=== PATIENT | female | born 2000 | race Caucasian/White ===

== ENCOUNTER 2020-05-15 11:48 | Emergency (ER) | payer MEDICAID, SELFPAY ==
[2020-05-15 11:49] VITALS: BP 143/86; PULSE 109; RESP 16; TEMP 36.2; O2SAT 97; BMI 35.7
--- NOTE | 2020-05-15 12:21 | ED.VISSUMM ---
- ER Visit Summary Date of Service: 05/15/20 Chief Complaint: Left flank pain History of Present Illness: The patient is a 19 F who presents with left flank pain that began approximately 6 days ago. Patient states it is gradually gotten worse. Patient states that today the pain feels like it is stabbing in her left flank area. Patient states it is worse whenever she lays on her left side. Patient states her pain improves after she vomits. Patient denies any dysuria or hematuria. However, patient states she feels like she has to push her urine to come out. Patient admits to a fever of 101 at home. Patient also admits to mild headache. Physical Examination: Vital signs are stable. Patient is afebrile. Patient is in no acute distress. Oral mucosa is pink and moist. Neck is supple. Trachea is midline. There is no JVD. Heart was regular rate and rhythm. Lungs are clear and equal bilaterally. Abdomen is soft. Bowel sounds are normal. There is some mild left lower quadrant tenderness. There is some left CVA tenderness. There is no rebound or guarding noted. Cranial nerves II through XII are intact. There are no focal motor or sensory deficits noted. Extremities are intact. There is no calf tenderness or edema. Test Results: CBC shows a mild leukocytosis of 13.7. Comprehensive metabolic profile was within normal limits. Urinalysis shows leukocyte esterase of 25 with positive nitrites and 3+ bacteria. There were 5-[address] scan of the abdomen pelvis was obtained. There is a 3.4 mm distal ureteral calculus on the right. There is some mild hydronephrosis and hydroureter. This was interpreted by the radiologist and reviewed by myself. Emergency Department Course and Treatment: Patient was given a dose of Toradol here. Patient was feeling better on reevaluation. Patient was given a prescription for short course of [place]. Patient was also given a prescription for Keflex. Patient was instructed to follow-up with her primary care physician in 5 to 7 days. Patient was instructed return if worse in any way. Patient understood and was agreeable with the plan. All questions were answered. Disposition: Discharge home Impression: 1. Right ureteral calculus 2. Urinary tract infection This note was generated with 2threadsation software. It may contain incorrect words, spelling, and punctuation that were not noted in review of the chart prior to signing ED Disposition - Plan for ED Patient: Disposition: Home or Assisted Living Diagnosis: Right distal ureteral calculus, Urinary tract infection Instructions: ED Bladder Infection, Female (Adult), ED Kidney Stone w/ Colic Prescriptions: Cephalexin [Keflex] 500 mg PO Q6 #12 cap Prescription Printed Hydrocodone Bitart/Apap 5-325 [[place] 5MG-325MG] 1 tab PO Q6H PRN PRN 3 Days #10 tab PRN Reason: Pain Prescription Printed Referrals: NOT,DEFINED [NON-STAFF] - 5-7 Days
--- NOTE | 2020-05-15 13:44 | CT_ITS ---
STUDY: CT ABDOMEN AND PELVIS WITHOUT CONTRAST REASON FOR EXAM: Female, 19 years old. BILATERAL FLANK PAIN X 5 DAYS-WORSENING RADIATION DOSAGE (If Supplied By Facility): CTDIvol = ( 15.43 ) mGy, DLP = ( 871.47 ) mGycm TECHNIQUE: Transaxial images were obtained from the dome of the diaphragm to the symphysis pubis without oral contrast, and without intravenous contrast. Sagittal and coronal images were reconstructed. Individualized dose optimization techniques were used for this CT. COMPARISON: None. FINDINGS: The visualized lung bases are unremarkable. The visualized portions of the heart are within normal limits. There is decreased attenuation of the liver consistent with steatosis. Normal gallbladder and extrahepatic biliary system. Normal spleen. Normal pancreas. Normal bilateral adrenal glands. 3.4 mm calculus in the distal portion of the right ureter just proximal to the ureterovesical junction. Normal left kidney. There is a small hiatal hernia. Normal small intestine. Normal colon. The appendix is visualized and appears normal. Normal abdominal aorta. Normal inferior vena cava. Normal retroperitoneum. Normal urinary bladder. There is a 4.4 cm x 2.8 cm right ovarian cyst. Normal abdominal wall. Normal osseous structures. CT/Abdomen/Pelvis without Cont IMPRESSION: Diffuse fatty infiltration of the liver. 3.4 mm calculus in the distal portion of the right ureter just proximal to the ureterovesical junction. Electronically Signed: Harsha Smith MD at 15:07 EST , Service support ,
[2020-05-15] MEDS: Ketorolac 30 MG/ML Syringe IV (14:07)
[2020-05-15 14:16] LABS: Color, Urine Yellow (Yellow); Glucose, Dipstick Normal (Normal); Ketone-Dipstick Negative (Negative); Leukocyte Esterase-Dipstick 25 /ul (Negative); Mucous, Urine 0 SEEN /hpf (<or=2+); Nitrite-Dipstick Positive (Negative); Occult Blood-Urine Negative /ul (Negative); Protein-Dipstick Negative (Negative); Red Blood Cells-Urine 0 SEEN /hpf (0-5); Specific Gravity, Urine 1.025 (1.002-1.030); Squamous Epithelial Cells - UA 0 SEEN /hpf (5-10); Urine Bilirubin Dipstick Negative (Negative); Urine Clarity Clear (Clear); Urine Urobilinogen Normal (Normal)
[2020-05-15 14:17] LABS: Absolute Lymphocyte Count 3.46 X10^3/uL (0.83-4.51); Absolute Neutrophil Count 8.9 X10^3/uL (2.0-7.7); Basophil# 0.08 X10^3/uL; Basophil% 0.6 % (0-1); Eosinophil# 0.12 X10^3/uL; Eosinophils% 0.9 % (0-5); Hematocrit 45.1 % (37-47); Hemoglobin 15.8 g/dL (12.0-15.0); Lymphocyte # 3.46 X10^3/ul (4.0); Lymphocyte % 25.2 % (19-41); Mean Corpuscular Hgb 31.2 pg (27.0-32.0); Mean Platelet Vol. 10.5 fl (6.2-12.0); Monocyte# 1.02 X10^3/uL; Monocyte% 7.4 % (0-10); NRBC Flagged by Analyzer 0 % (0-5); Neutrophil # 8.91 X10^3/uL (2.7-7.7); Neutrophil % 64.8 % (47-70); Platelet Count 259 K/mm3 (150-450); RBC Distribution Width CV 12.4 % (11.6-14.6); RBC Distribution Width SD 39.3 fl (35.1-43.9); Red Blood Count 5.07 M/mm3 (4.2-5.4); White Blood Count 13.7 K/mm3 (4.4-11.0)
[2020-05-15 14:23] LABS: Internal QC Validated? YES +Cl - CLEAR BKGD; Pregnancy, Serum, hCG Quali. NEGATIVE Negative
[2020-05-15 14:24] LABS: Bacteria 3+ /hpf (None Seen); White Blood Cells 5-10 SEEN /hpf (0-5)
[2020-05-15 14:32] LABS: AST(SGOT) 33 U/L (15-37); Alanine Aminotransfer ALT/SGPT 70 U/L (13-56); Alkaline Phosphatase 85 U/L (45-117); Anion Gap 8 (5-15); BUN 16 mg/dL (7-18); BUN/Creat Ratio 19.7 RATIO (10-20); Calcium,Total 9.5 mg/dL (8.5-10.1); Chloride 106 mmol/L (98-107); Creatinine, Serum 0.81 mg/dL (0.55-1.02); EST Glomerular Filtration Rate 95 mL/min (>60); Est Glom Filt Rate - Afr Amer 115 mL/min (>60); Estimated Creatinine Clearance 99.69 ml/min; Glucose 112 mg/dL (74-106); Sodium Level 138 mmol/L (136-145)
[2020-05-15 16:00] VITALS: BP 125/68
== END 2020-05-15 16:06 | disposition home or self-care (01) ==
PROVIDERS: Emergency Provider Emergency Medicine
DX: N13.2 Hydronephrosis with renal and ureteral calculous obstruction (principal); N39.0 Urinary tract infection, site not specified; R51.9 Headache, unspecified
CPT/HCPCS: 74176; 80053; 81001; 84703; 85025; 96374; 99284; A4216